=== PATIENT | female | born 1945 | race Caucasian/White ===

== ENCOUNTER → 2016-07-31 | Outpatient (CLI) | payer MEDICARE, OTHER ==
[~2016-07-31] MED LIST: CALCIUM + D 6001 TA1 PO; MELOXICAM15 MG PO; MULTI-DAY1 TAB PO; SYNTHROID PO; SYNTHROID175 MCG PO; TRAMADOL HCL-AP1 TAB PO; VITAMIN B 12 PO
--- NOTE | ~2016-07-31 | NM19 ---
[facility] A Service of [facility] [place] [facility] RADIOLOGY TEXT RESULTS PATIENT: TERESA MCKEON LOCATION: [facility] : 49 UNIT #: [id number] AGE: [address]: Ady Dempsey MD SEX: F ORDER DR: [id number] [facility] [address] [place], [place] [address] [id number] O MR#: [id number] Acc #: [id number] NAME: TERESA MCKEON : 1945 SEX: F STUDY DATE/TIME: 07/31/2016 10:28 UNIT: [facility] ROOM: STUDY DESCRIPTION: [place] Gastric Emptying Study Attending Physician: Ady Dempsey M.D. Referring Physician: Ady Dempsey M.D. Ordering Physician: Ady Dempsey M.D. Primary Care Physician: Anderson Cummings M.D. MEDICAL IMAGING REPORT This report is preliminary unless electronic signature is present EXAM Gastric emptying scan 07/31/2016. HISTORY Acid reflux, gastroesophageal reflux disease, H pylori associated gastritis, abdominal bloating and abdominal pain for 15 years. FINDINGS The patient ingested 538 microcuries of technetium-99m tagged sulfur colloid in eggs. Images of the upper abdomen were obtained for 4 hours. After 1 hour, the stomach was 45% empty, and after 2 hours, the stomach was 91% empty, and after 4 hours the stomach was 95% empty. Normal range is greater than 60% empty after 2 hours of imaging and greater than 90% empty after 4 hours of imaging. IMPRESSION Normal gastric emptying after 2 and 4 hours of imaging. Dictated by... Len Workman M.D. THIS IS AN ELECTRONICALLY VERIFIED REPORT Len Workman M.D. at 08/01/2016 6:17 AM KAVITA/danielle TD: 07/31/2016 18:37 JOB #: [id number] MEDICAL IMAGING REPORT Page 1 of 1 COPY
== END | disposition home or self-care (01) ==
LOC: CNUC 09:41
DX: K21.9 Gastro-esophageal reflux disease without esophagitis (principal); B96.81 Helicobacter pylori [H. pylori] as the cause of diseases classified elsewhere; K29.70 Gastritis, unspecified, without bleeding; R14.0 Abdominal distension (gaseous)
CPT/HCPCS: 78264; A9541